=== PATIENT | female | born 1995 | race Caucasian/White ===

== ENCOUNTER 2023-09-14 06:52 | Inpatient (IN) | payer BC ==
[2023-09-14] MEDS ORDERED: ROPivacaine PF 0.2% 200 ML IV ONE (14:47)
[2023-09-14] MEDS ORDERED: Meperidine 50 MG/ML 1 ML VIAL ONE (21:59)
[2023-09-14] MEDS ORDERED: Ketorolac 60 MG/2 ML VIAL IM ONE (22:04)
[2023-09-14] MEDS ORDERED: EPINEPHrine 1 MG/1 ML Ampule ONE (22:04)
[2023-09-14] MEDS ORDERED: dexAMETHasone 10 MG/ML VIAL ONE (22:07)
[2023-09-14] MEDS ORDERED: NS 20 ML IV ONE (22:07)
[2023-09-14] MEDS ORDERED: Oxytocin 10 UNITS/ML VIAL ONE (22:07)
[2023-09-14] MEDS ORDERED: LR 1,000 ML IV ONE (22:16)
== END 2023-09-17 12:00 | disposition home or self-care (01) | DRG 788 ==
LOC: LDRO 06:52 → OB 07:10
PROC: 10D00Z1 Extraction of Products of Conception, Low, Open Approach (ICD-10-PCS; principal; 2023-09-14)
DX: O48.0 Post-term pregnancy (principal); Z37.0 Single live birth; O62.0 Primary inadequate contractions; O77.0 Labor and delivery complicated by meconium in amniotic fluid; O36.63X0 Maternal care for excessive fetal growth, third trimester, not applicable or unspecified; Z3A.40 40 weeks gestation of pregnancy; Z86.16 Personal history of COVID-19; Z88.0 Allergy status to penicillin; Z88.2 Allergy status to sulfonamides
CPT/HCPCS: J0171; J0665; J0690; J1100; J1885; J2175; J2590; J2795; J7120